=== PATIENT | female | born 1950 | race Asian ===

== ENCOUNTER 2019-12-20 14:08 | Emergency (ER) | payer MEDICARE ==
--- NOTE | 2019-12-20 14:53 | Emergency Department Report ---
HPI - HPI HPI: This is a 69-year-old female presents to the emergency department from her halfway facility for a mental health evaluation. Patient has a history of pulmonary fibrosis and says that she is in advanced stages of lung cancer and currently on hospice. The patient went to [facility] last night secondary to some generalized pains despite her treatment with methadone. Apparently she did not have any suicidal ideations at that time and was discharged home. This morning the patient began thinking about her , and says "I am miserable" in regards to her living situation and health conditions. Patient began having suicidal ideations. At one point she took her oxygen tubing, wrapped around her neck, and went to show 1 of the nurses at the facility as a "joke." While the patient denies actually trying to kill herself, she does admit to these suicidal ideations. She also admits to some nonspecific auditory and visual hallucinations intermittently. Patient says that she does have a history of depression for which she is on psychiatric medications but she cannot remember the actual medications at this time, nor the name of her psychiatrist. <HAKEEM MCKEON - Last Filed: 12/20/19 18:27> <HENRIK BEYER - Last Filed: 12/22/19 12:16> - General Chief Complaint: Psych Time Seen by Provider: 12/20/19 14:31 ED Past Medical Hx - Past Medical History Previous Medical History?: Yes - Social History Smoking Status: Never Smoker Substance Use Type: None <HAKEEM MCKEON - Last Filed: 12/20/19 18:27> <HENRIK BEYER - Last Filed: 12/22/19 12:16> - Medications Home Medications: Home Medications Medication Instructions Recorded Confirmed Last Taken Type LORazepam [Ativan] 1 mg PO TID 12/20/19 12/20/19 Unknown History Methadone [Dolophine] 40 mg PO QHS 12/20/19 12/21/19 Unknown History Methadone [Dolophine] 60 mg PO QAM 12/20/19 12/20/19 Unknown History Dexlansoprazole [Dexilant] 60 mg PO QDAY 12/21/19 12/21/19 Unknown History Docusate Sodium [Colace CAP] 100 mg PO PRN 12/21/19 12/21/19 Unknown History Escitalopram Oxalate [Lexapro] 20 mg PO QAM 12/21/19 12/21/19 Unknown History L. Acidophilus/L.bulgaricus 1 each PO QDAY 12/21/19 12/21/19 Unknown History [Floranex Tablet] Mirtazapine [Remeron 30mg TAB] 30 mg PO QHS 12/21/19 12/21/19 Unknown History Promethazine [Phenergan] 12.5 mg PO BID 12/21/19 12/21/19 Unknown History buPROPion XL [Wellbutrin Xl] 150 mg PO QAM #30 tab.er.24h 12/21/19 Unknown Rx raNITIdine HCl [Zantac] 300 mg PO QDAY 12/21/19 12/21/19 Unknown History ED Review of Systems ROS: Stated complaint: PSYCH Other details as noted in HPI Comment: All other systems reviewed and negative Constitutional: denies: chills, fever Cardiovascular: denies: chest pain, palpitations Gastrointestinal: denies: abdominal pain, vomiting Musculoskeletal: denies: back pain Neurological: denies: headache, weakness Psychiatric: suicidal thoughts. denies: homicidal thoughts <HAKEEM MCKEON S - Last Filed: 12/20/19 18:27> ROS: Stated complaint: PSYCH Other details as noted in HPI <HENRIK BEYER - Last Filed: 12/22/19 12:16> Physical Exam - Physical Exam Vital Signs: Vital Signs 12/20/19 14:24 Temperature 97.9 F Pulse Rate 78 Respiratory 16 Rate Blood Pressure 97/55 [Left] O2 Sat by Pulse 99 Oximetry Physical Exam: GENERAL: The patient is well-developed well-nourished. HENT: Normocephalic. Atraumatic. Patient has moist mucous membranes. EYES: Extraocular motions are intact. NECK: Supple. Trachea is midline. CHEST/LUNGS: Clear to auscultation. There is no respiratory distress noted. HEART/CARDIOVASCULAR: Regular. There is no tachycardia. ABDOMEN: Abdomen is soft, nontender. Patient has normal bowel sounds. SKIN: Skin is warm and dry. NEURO: The patient is awake, alert, and oriented. The patient is cooperative. Normal speech. MUSCULOSKELETAL: There is no tenderness or deformity. There is no evidence of acute injury. <HAKEEM MCKEON S - Last Filed: 12/20/19 18:27> - Physical Exam Vital Signs: Vital Signs 12/20/19 12/20/19 12/20/19 14:20 14:24 16:28 Temperature 97.9 F Pulse Rate 78 Respiratory 16 16 16 Rate Blood Pressure Blood Pressure 97/55 [Left] O2 Sat by Pulse 99 99 Oximetry 12/20/19 12/20/19 12/20/19 17:28 20:00 20:03 Temperature 97.8 F Pulse Rate 91 H Respiratory 16 20 18 Rate Blood Pressure Blood Pressure 111/67 [Left] O2 Sat by Pulse 100 Oximetry 12/21/19 12/21/19 12/21/19 02:00 09:00 15:28 Temperature 98.0 F 98.0 F Pulse Rate 88 45 L 80 Respiratory 18 18 18 Rate Blood Pressure 127/76 116/76 Blood Pressure [Left] O2 Sat by Pulse 99 81 L 98 Oximetry 12/21/19 12/21/19 12/22/19 20:00 20:17 02:10 Temperature 98.3 F 98.8 F Pulse Rate 86 84 Respiratory 18 16 16 Rate Blood Pressure Blood Pressure 100/64 102/69 [Left] O2 Sat by Pulse 96 91 Oximetry 12/22/19 08:48 Temperature 96.6 F L Pulse Rate 101 H Respiratory 17 Rate Blood Pressure Blood Pressure 125/68 [Left] O2 Sat by Pulse Oximetry <HENRIK BEYER - Last Filed: 12/22/19 12:16> ED Course Vital Signs 12/20/19 14:24 Temperature 97.9 F Pulse Rate 78 Respiratory 16 Rate Blood Pressure 97/55 [Left] O2 Sat by Pulse 99 Oximetry - Reevaluation(s) Reevaluation #1: 12/20/19 18:28 Lab Results 12/20/19 12/20/19 12/20/19 Range/Units 14:41 14:41 14:41 WBC (4.5-11.0) K/mm3 RBC (3.65-5.03) M/mm3 Hgb (10.1-14.3) gm/dl Hct (30.3-42.9) % MCV (79-97) fl MCH (28-32) pg MCHC (30-34) % RDW (13.2-15.2) % Plt Count (140-440) K/mm3 Lymph % (Auto) (13.4-35.0) % Payne % (Auto) (0.0-7.3) % Eos % (Auto) (0.0-4.3) % Baso % (Auto) (0.0-1.8) % Lymph # (1.2-5.4) K/mm3 Payne # (0.0-0.8) K/mm3 Eos # (0.0-0.4) K/mm3 Baso # (0.0-0.1) K/mm3 Seg Neutrophils % (40.0-70.0) % Seg Neutrophils # (1.8-7.7) K/mm3 Sodium 134 L (137-145) mmol/L Potassium 4.9 (3.6-5.0) mmol/L Chloride 99.1 (98-107) mmol/L Carbon Dioxide 26 (22-30) mmol/L Anion Gap 14 mmol/L BUN 9 (7-17) mg/dL Creatinine 0.8 (0.7-1.2) mg/dL Estimated GFR > 60 ml/min BUN/Creatinine Ratio 11 % Glucose 110 H (65-100) mg/dL Calcium 8.7 (8.4-10.2) mg/dL Urine Color (Yellow) Urine Turbidity (Clear) Urine pH (5.0-7.0) Ur Specific [place] (1.003-1.030) Urine Protein (Negative) mg/dL Urine Glucose (UA) (Negative) mg/dL Urine Ketones (Negative) mg/dL Urine Blood (Negative) Urine Nitrite (Negative) Urine Bilirubin (Negative) Urine Urobilinogen (<2.0) mg/dL Ur Leukocyte Esterase (Negative) Urine WBC (Auto) (0.0-6.0) /HPF Urine RBC (Auto) (0.0-6.0) /HPF U Epithel Cells (Auto) (0-13.0) /HPF Urine Mucus /HPF Salicylates < 0.3 L (2.8-20.0) mg/dL Urine Opiates Screen Urine Methadone Screen Acetaminophen < 5.0 L (10.0-30.0) ug/mL Ur Barbiturates Screen Ur Phencyclidine Scrn Ur Amphetamines Screen U Benzodiazepines Scrn Urine Cocaine Screen U Marijuana (THC) Screen Drugs of Abuse Note Plasma/Serum Alcohol (0-0.07) % 12/20/19 12/20/19 12/20/19 Range/Units 14:41 14:41 15:01 WBC 5.9 (4.5-11.0) K/mm3 RBC 3.56 L (3.65-5.03) M/mm3 Hgb 9.9 L (10.1-14.3) gm/dl Hct 29.1 L (30.3-42.9) % MCV 82 (79-97) fl MCH 28 (28-32) pg MCHC 34 (30-34) % RDW 17.3 H (13.2-15.2) % Plt Count 246 (140-440) K/mm3 Lymph % (Auto) 12.8 L (13.4-35.0) % Payne % (Auto) 5.5 (0.0-7.3) % Eos % (Auto) 1.8 (0.0-4.3) % Baso % (Auto) 0.8 (0.0-1.8) % Lymph # 0.7 L (1.2-5.4) K/mm3 Payne # 0.3 (0.0-0.8) K/mm3 Eos # 0.1 (0.0-0.4) K/mm3 Baso # 0.0 (0.0-0.1) K/mm3 Seg Neutrophils % 79.1 H (40.0-70.0) % Seg Neutrophils # 4.6 (1.8-7.7) K/mm3 Sodium (137-145) mmol/L Potassium (3.6-5.0) mmol/L Chloride (98-107) mmol/L Carbon Dioxide (22-30) mmol/L Anion Gap mmol/L BUN (7-17) mg/dL Creatinine (0.7-1.2) mg/dL Estimated GFR ml/min BUN/Creatinine Ratio % Glucose (65-100) mg/dL Calcium (8.4-10.2) mg/dL Urine Color Yellow (Yellow) Urine Turbidity Clear (Clear) Urine pH 5.0 (5.0-7.0) Ur Specific [place] 1.010 (1.003-1.030) Urine Protein <15 mg/dl (Negative) mg/dL Urine Glucose (UA) Neg (Negative) mg/dL Urine Ketones Neg (Negative) mg/dL Urine Blood Neg (Negative) Urine Nitrite Neg (Negative) Urine Bilirubin Neg (Negative) Urine Urobilinogen < 2.0 (<2.0) mg/dL Ur Leukocyte Esterase Sm (Negative) Urine WBC (Auto) 2.0 (0.0-6.0) /HPF Urine RBC (Auto) 5.0 (0.0-6.0) /HPF U Epithel Cells (Auto) 1.0 (0-13.0) /HPF Urine Mucus Few /HPF Salicylates (2.8-20.0) mg/dL Urine Opiates Screen Urine Methadone Screen Acetaminophen (10.0-30.0) ug/mL Ur Barbiturates Screen Ur Phencyclidine Scrn Ur Amphetamines Screen U Benzodiazepines Scrn Urine Cocaine Screen U Marijuana (THC) Screen Drugs of Abuse Note Plasma/Serum Alcohol < 0.01 (0-0.07) % 12/20/19 Range/Units 15:01 WBC (4.5-11.0) K/mm3 RBC (3.65-5.03) M/mm3 Hgb (10.1-14.3) gm/dl Hct (30.3-42.9) % MCV (79-97) fl MCH (28-32) pg MCHC (30-34) % RDW (13.2-15.2) % Plt Count (140-440) K/mm3 Lymph % (Auto) (13.4-35.0) % Payne % (Auto) (0.0-7.3) % Eos % (Auto) (0.0-4.3) % Baso % (Auto) (0.0-1.8) % Lymph # (1.2-5.4) K/mm3 Payne # (0.0-0.8) K/mm3 Eos # (0.0-0.4) K/mm3 Baso # (0.0-0.1) K/mm3 Seg Neutrophils % (40.0-70.0) % Seg Neutrophils # (1.8-7.7) K/mm3 Sodium (137-145) mmol/L Potassium (3.6-5.0) mmol/L Chloride (98-107) mmol/L Carbon Dioxide (22-30) mmol/L Anion Gap mmol/L BUN (7-17) mg/dL Creatinine (0.7-1.2) mg/dL Estimated GFR ml/min BUN/Creatinine Ratio % Glucose (65-100) mg/dL Calcium (8.4-10.2) mg/dL Urine Color (Yellow) Urine Turbidity (Clear) Urine pH (5.0-7.0) Ur Specific [place] (1.003-1.030) Urine Protein (Negative) mg/dL Urine Glucose (UA) (Negative) mg/dL Urine Ketones (Negative) mg/dL Urine Blood (Negative) Urine Nitrite (Negative) Urine Bilirubin (Negative) Urine Urobilinogen (<2.0) mg/dL Ur Leukocyte Esterase (Negative) Urine WBC (Auto) (0.0-6.0) /HPF Urine RBC (Auto) (0.0-6.0) /HPF U Epithel Cells (Auto) (0-13.0) /HPF Urine Mucus /HPF Salicylates (2.8-20.0) mg/dL Urine Opiates Screen Presumptive negative Urine Methadone Screen Presumptive positive Acetaminophen (10.0-30.0) ug/mL Ur Barbiturates Screen Presumptive negative Ur Phencyclidine Scrn Presumptive negative Ur Amphetamines Screen Presumptive positive U Benzodiazepines Scrn Presumptive negative Urine Cocaine Screen Presumptive negative U Marijuana (THC) Screen Presumptive negative Drugs of Abuse Note Disclamer Plasma/Serum Alcohol (0-0.07) % <HAKEEM MCKEON S - Last Filed: 12/20/19 18:27> Vital Signs 12/20/19 12/20/19 12/20/19 14:20 14:24 16:28 Temperature 97.9 F Pulse Rate 78 Respiratory 16 16 16 Rate Blood Pressure Blood Pressure 97/55 [Left] O2 Sat by Pulse 99 99 Oximetry 12/20/19 12/20/19 12/20/19 17:28 20:00 20:03 Temperature 97.8 F Pulse Rate 91 H Respiratory 16 20 18 Rate Blood Pressure Blood Pressure 111/67 [Left] O2 Sat by Pulse 100 Oximetry 12/21/19 12/21/19 12/21/19 02:00 09:00 15:28 Temperature 98.0 F 98.0 F Pulse Rate 88 45 L 80 Respiratory 18 18 18 Rate Blood Pressure 127/76 116/76 Blood Pressure [Left] O2 Sat by Pulse 99 81 L 98 Oximetry 12/21/19 12/21/19 12/22/19 20:00 20:17 02:10 Temperature 98.3 F 98.8 F Pulse Rate 86 84 Respiratory 18 16 16 Rate Blood Pressure Blood Pressure 100/64 102/69 [Left] O2 Sat by Pulse 96 91 Oximetry 12/22/19 08:48 Temperature 96.6 F L Pulse Rate 101 H Respiratory 17 Rate Blood Pressure Blood Pressure 125/68 [Left] O2 Sat by Pulse Oximetry <HENRIK BEYER - Last Filed: 12/22/19 12:16> ED Medical Decision Making - Lab Data Result diagrams: 12/20/19 14:41 12/20/19 14:41 - Radiology Data Radiology results: report reviewed CHEST 1 VIEW 12/20/2019 3:42 PM INDICATION / CLINICAL INFORMATION: cough. COMPARISON: None available. FINDINGS: Patient is slightly rotated to the left. SUPPORT DEVICES: None. HEART / MEDIASTINUM: Heart is mildly enlarged for AP portable technique. LUNGS / PLEURA: Streaky bilateral pulmonary opacities, especially in the left lung base. No pneumothorax. ADDITIONAL FINDINGS: No significant additional findings. IMPRESSION: 1. Possible left lung base pneumonia. - Medical Decision Making This patient presents to the emergency department with the complaint of depression and suicidal ideations. The patient is depressed about the previous of her and her current living situation and medical conditions. She tied oxygen nasal cannula tubing around her neck and went out and showed a nurse at her nursing facility. The patient still expresses suicidal ideations and for this reason she has been made a 1013. Her labs have been unremarkable. Chest x-ray was read by radiology as a "possible left lung base pneumonia." I did not hear any significant rhonchi, and radiology does not appear definitive with this finding, but the patient will be treated empirically with some antibiotics. Vital signs been stable throughout her ED course thus far including being afebrile and there is no hypoxia. The patient is medically cleared for psychiatric placement. <HAKEEM MCKEON - Last Filed: 12/20/19 18:27> - Lab Data Result diagrams: 12/20/19 14:41 12/20/19 14:41 - Medical Decision Making Ms. Alston has been evaluated by our psychiatric team and advised patient to be discharged home and to follow-up as an outpatient. Patient is currently denying any suicidal or homicidal ideation. No visual or auditory hallucination. Patient will be transported back to her family by family member. Patient is medically and psychiatrically stable for discharge. <HENRIK BEYER - Last Filed: 12/22/19 12:16> Critical Care Time: No Critical care attestation.: If time is entered above; I have spent that time in minutes in the direct care of this critically ill patient, excluding procedure time. <HAKEEM MCKEON - Last Filed: 12/20/19 18:27> Critical care attestation.: If time is entered above; I have spent that time in minutes in the direct care of this critically ill patient, excluding procedure time. <HENRIK BEYER - Last Filed: 12/22/19 12:16> ED Disposition Is pt being admited?: No Time of Disposition: 18:32 <HAKEEM MCKEON - Last Filed: 12/20/19 18:27> <HENRIK BEYER - Last Filed: 12/22/19 12:16> Condition: Stable Additional Instructions: OUTPATIENT MENTAL HEALTH RESOURCES [facility], [facility] Lela Lugo MD: [address] [facility] [address] [place] [address] [place] [address] [facility]: [employer] [address] [place] [address] [place] [address] [phone] [facility]: [facility] Healthcare: [address] [place] [address] [address] [place] [address] [place] [address] [facility] [id number] [facility]: Pascual Garcia MD: [address] [facility] [address] [facility] [id number] [facility]: [address] [place], [place] [id number] [phone] [place] CRISIS AND ACCESS LINE: Prescriptions: buPROPion XL [Wellbutrin Xl] 150 mg PO QAM #30 tab.er.24h Referrals: ORI ANG MD [Primary Care Provider] - 3-5 Days
[2019-12-20 14:57] LABS: Basophils % (Auto) 0.8 % (0.0-1.8); Eosinophils # (Auto) 0.1 K/mm3 (0.0-0.4); Eosinophils % (Auto) 1.8 % (0.0-4.3); Hematocrit 29.1 % (30.3-42.9); Hemoglobin 9.9 gm/dl (10.1-14.3); Lymphocytes # (Auto) 0.7 K/mm3 (1.2-5.4); Lymphocytes % (Auto) 12.8 % (13.4-35.0); Mean Corpuscular HGB Conc 34 % (30-34); Mean Corpuscular Volume 82 fl (79-97); Monocytes # (Auto) 0.3 K/mm3 (0.0-0.8); Monocytes % (Auto) 5.5 % (0.0-7.3); Platelet Count 246 K/mm3 (140-440); Red Blood Count 3.56 M/mm3 (3.65-5.03); Red Cell Distribution Width 17.3 % (13.2-15.2)
[2019-12-20 15:13] LABS: Bilirubin,Urine NEG (Negative); Blood,Urine NEG (Negative); Color,Urine Yellow (Yellow); Mucus,Urine FEW /HPF; Protein,Urine <15 mg/dL mg/dL (Negative); Urobilinogen,Urine < 2.0 mg/dL (<2.0)
[2019-12-20 15:16] LABS: BUN/Creatinine Ratio 11; Blood Urea Nitrogen 9 mg/dL (7-17); Calcium 8.7 mg/dL (8.4-10.2); Hemolysis Index 89
[2019-12-20 15:20] LABS: Amphetamine Screen,Urine PRESUMPTIVE POSITIVE; Benzodiazepines Screen,Urine PRESUMPTIVE NEGATIVE; Cannabinoid Screen,Urine PRESUMPTIVE NEGATIVE; Cocaine Screen,Urine PRESUMPTIVE NEGATIVE; Methadone Screen,Urine PRESUMPTIVE POSITIVE; Opiate Screen,Urine PRESUMPTIVE NEGATIVE
[2019-12-20] MEDS ORDERED: HYDROcodone/ACETAMINOPHEN 5-325 MG TAB PO ONE (16:27)
--- NOTE | 2019-12-20 16:56 | XRay Report ---
CHEST 1 VIEW 12/20/2019 3:42 PM INDICATION / CLINICAL INFORMATION: cough. COMPARISON: None available. FINDINGS: Patient is slightly rotated to the left. SUPPORT DEVICES: None. HEART / MEDIASTINUM: Heart is mildly enlarged for AP portable technique. LUNGS / PLEURA: Streaky bilateral pulmonary opacities, especially in the left lung base. No pneumotho rax. ADDITIONAL FINDINGS: No significant additional findings. IMPRESSION: 1. Possible left lung base pneumonia. Signer Name: Isatu Reed MD Signed: 12/20/2019 4:51 PM Workstation Name: [id number]
[2019-12-20] MEDS: LORazepam 1 MG TAB PO SCH (19:54)
[2019-12-20] MEDS: AZITHROMYCIN 250 MG TAB PO SCH (19:55)
[2019-12-21] MEDS: LORazepam 1 MG TAB PO SCH ×3 (08:57→23:16)
--- NOTE | 2019-12-21 09:50 | Consultation ---
History of Present Illness - Reason for Consult Consult date: 12/21/19 Reason for consult: SI gesture - History of Present Psychiatric Illness Nathalie Alston is a 69y/o female patient who states she was brought to the ER because she "made a gesture by wrapping oxygen cord around my neck." The patient is a/o x 3. She is cooperative, but somewhat anxious. She is polite. The patient states, "I was kidding, but I was just hurting so bad. I'm dying anyway. It's just a matter of months." She says, "I have lung cancer and it's everywhere over my body." The patient then asks me for her methadone. She says, "I gotta get back so I can get my methadone. I can't take all of this pain, honey." The patient denies SI/HI and states, "now I know not to ever say that again." She de nies suicide attempts in the past, stating, "never." The patient denies hallucinations of any kind. The patient says, "my mood is not good, because I'm hurting so bad I can't stand it." She says, "but I'm suicidal where I want to take my life." She denies any illicit drug use, alcohol or nicotine use. She also denies being on any psychiatric medications or having any psychiatric admissions. Spoke with the patient daughter Akiko at [phone], Akiko says the patient has been on methadone since her early twenties. She says the patient has a substance abuse history of pain killers. She says the patient will throw a fit and become upset over her medication. Advised Akiko that the patient is complaining of severe pain and would not be given methadone by the psych team. Advised that the patient would not likely benefit from psych services because her underlying condition is chronic pain and Methadone Dependence. Akiko says she is aware, and states the patient takes methadone as well for a back injury. She says but she's not sure if the [facility] will take her back. She says the patient has a history of "pulmonary fibrosis and not lung cancer." She says the patient was told by a doctor that she had lung cancer, but the doctor misread her medical records. Akiko says she wants to have a talk with the patient, and call the [facility] and see if the patient can come back. Daughter called back saying [facility] would not take the patient back. She says she would like to speak with a case management specialist to help find placement. She also states the patient was taking Wellbutrin XL but it was discontinued in June. She would like it restarted. PAST PSYCHIATRIC HISTORY Diagnoses: Denies Suicide attempts or Self-harm behavior: Denies Prior psychiatric hospitalizations: Denies Substance Abuse history: Denies Previous psychiatric medications tried: Denies Outpatient treatment: Denies PAST MEDICAL HISTORY: unknown Family Psychiatric History: None reported or documented SOCIAL HISTORY Marital Status: Living Arrangements: Hospice Employment Status: Disabled Access to guns/weapons: Denies Education: High school History of Abuse: Denies Legal History: Denies REVIEW OF SYSTEMS Constitutional: Negative for weight loss ENT: Negative for stridor Respiratory: Negative for cough or hemoptysis All other systems reviewed and are negative MENTAL STATUS EXAMINATION General Appearance: Dressed appropriately Behavior: Anxious, cooperative. Good eye contact. Mood: "not good" Affect: Congruent with stated mood Speech: Normal tone and pace Thought Process: Goal oriented Thought Content: Suicidal Ideation: Denies Homicidal Ideation: Denies Hallucinations: Denies Delusions: None elicited Insight and Judgment: Limited Memory/Cognition: Limited ASSESSMENT Major Depressive Disorder Opiod Dependence, Continuous Plan/Recommendations D/C 1013 Restart Wellbutrin XL 150mg po daily Risks, benefits and alternatives of medications discussed with the patient, questions answered and consent obtained from patient. PSYCHOTHERAPY: Supportive psychotherapy provided MEDICAL: Per primary team DELIRIUM PRECAUTIONS: Please re-orient patient frequently, keep lights on during the day, and minimize benzodiazepines and opiates as these medications could worsen patient's confusion. LEAD PONY RIDER: per medical team DISPOSITION: Do not Recommends acute inpatient psychiatric hospitalization at this time. The patient discharge back to hospice once medically cleared. The patient understands that is suicidal thoughts are to arise she is to call the crisis hotline, 911 or ER. Akiko is also aware and verbalizes understanding of plan. The instructor wastewater treatment plant to discuss safety plan with the patient, and give her resources for drug rehabilitation programs. The instructor wastewater treatment plant also to have case management or SW contact daughter. Will sign off Thank you for the consult. Please contact with any questions and/or concerns. Medications and Allergies Allergies Allergy/AdvReac Type Severity Reaction Status Date / Time amoxicillin Allergy Unknown Verified 12/20/19 14:22 cefuroxime [From Ceftin] Allergy Unknown Verified 12/20/19 14:22 ciprofloxacin Allergy Unknown Verified 12/20/19 14:22 clavulanic acid Allergy Unknown Verified 12/20/19 14:22 [From Augmentin] NSAIDS (Non-Steroidal Allergy Unknown Verified 12/20/19 14:22 Anti-Inflamma Home Medications Medication Instructions Recorded Confirmed Last Taken Type LORazepam [Ativan] 1 mg PO TID 12/20/19 12/20/19 Unknown History Methadone [Dolophine] 60 mg PO QAM 12/20/19 12/20/19 Unknown History Methadone [Dolophine] 60 mg PO QPM 12/20/19 12/20/19 Unknown History Active Meds: Active Medications Azithromycin (Zithromax) 500 mg PO QDAY [facility] Stop: 12/24/19 10:01 Last Admin: 12/20/19 19:55 Dose: 500 mg Documented by: Lorazepam (Ativan) 1 mg PO TID [facility] Last Admin: 12/21/19 08:57 Dose: 1 mg Documented by: Mental Status Exam - Vital signs Last Vital Signs Temp 97.8 F 12/20/19 20:03 Pulse 88 12/21/19 02:00 Resp 18 12/21/19 02:00 BP 111/67 12/20/19 20:03 Pulse Ox 99 12/21/19 02:00 Results Result Diagrams: 12/20/19 14:41 12/20/19 14:41 Abnormal lab results 12/20/19 12/20/19 12/20/19 Range/Units 14:41 14:41 14:41 RBC (3.65-5.03) M/mm3 Hgb (10.1-14.3) gm/dl Hct (30.3-42.9) % RDW (13.2-15.2) % Lymph % (Auto) (13.4-35.0) % Lymph # (1.2-5.4) K/mm3 Seg Neutrophils % (40.0-70.0) % Sodium 134 L (137-145) mmol/L Glucose 110 H (65-100) mg/dL Salicylates < 0.3 L (2.8-20.0) mg/dL Acetaminophen < 5.0 L (10.0-30.0) ug/mL 12/20/19 Range/Units 14:41 RBC 3.56 L (3.65-5.03) M/mm3 Hgb 9.9 L (10.1-14.3) gm/dl Hct 29.1 L (30.3-42.9) % RDW 17.3 H (13.2-15.2) % Lymph % (Auto) 12.8 L (13.4-35.0) % Lymph # 0.7 L (1.2-5.4) K/mm3 Seg Neutrophils % 79.1 H (40.0-70.0) % Sodium (137-145) mmol/L Glucose (65-100) mg/dL Salicylates (2.8-20.0) mg/dL Acetaminophen (10.0-30.0) ug/mL All other labs normal.
[2019-12-21] MEDS: AZITHROMYCIN 250 MG TAB PO SCH (10:16)
[2019-12-21] MEDS: buPROPion XL 150 MG TAB PO SCH (14:15)
[2019-12-21] MEDS: METHADONE 10 MG TAB PO SCH ×2 (15:24→17:46)
[2019-12-21] MEDS ORDERED: DOCUSATE SODIUM 100 MG CAP PO PRN (16:00)
[2019-12-21] MEDS ORDERED: METHADONE 10 MG TAB PO SCH (22:00)
[2019-12-21] MEDS: PROMETHAZINE 25 MG TAB PO SCH ×2 (23:16→23:20)
[2019-12-21] MEDS: FAMOTIDINE 20 MG TAB PO SCH (23:17)
[2019-12-22 08:49] VITALS: BP 125/68
[2019-12-22] MEDS: FAMOTIDINE 20 MG TAB PO SCH ×2 (09:20→09:41)
[2019-12-22] MEDS: LORazepam 1 MG TAB PO SCH (09:21)
[2019-12-22] MEDS: METHADONE 10 MG TAB PO SCH (09:37)
[2019-12-22] MEDS: PROMETHAZINE 25 MG TAB PO SCH (09:40)
[2019-12-22] MEDS: buPROPion XL 150 MG TAB PO SCH (09:40)
[2019-12-22] MEDS: AZITHROMYCIN 250 MG TAB PO SCH (09:41)
== END 2019-12-22 15:59 | disposition home or self-care (01) ==
LOC: EEVIPCON 14:08 → ED 14:08
DX: F32.89 Other specified depressive episodes (principal); F15.20 Other stimulant dependence, uncomplicated; Z88.1 Allergy status to other antibiotic agents; Z88.6 Allergy status to analgesic agent
CPT/HCPCS: 36415; 71045; 80048; 80307; 81001; 85025; 99285; Q0169; 80320; G0480